=== PATIENT | female | born 1955 | race Caucasian/White ===

== ENCOUNTER 2018-05-03 11:55 | Outpatient (CLI) | payer OTHER | END 2018-05-03 12:03 | disposition home or self-care (01) | LOC: LAB 11:55 | DX: R10.9 Unspecified abdominal pain (principal); D64.0 Hereditary sideroblastic anemia ==

== ENCOUNTER 2018-05-05 07:08 | Outpatient (CLI) | payer OTHER | END 2018-05-05 07:12 | disposition home or self-care (01) | LOC: TOM 07:08 | DX: R10.9 Unspecified abdominal pain (principal) ==

== ENCOUNTER 2018-09-27 12:55 | Emergency (ER) | payer OTHER ==
[~2018-09-27] VITALS: Ht 160 cm; Wt 139.7 kg
[2018-09-27] MEDS ORDERED: DIOVAN HCT 1601 EACH (13:07)
[2018-09-27] MEDS ORDERED: SYNTHROID50 MCG (13:07)
== END 2018-09-27 17:53 | disposition home or self-care (01) ==
LOC: ER 12:55
DX: I10 Essential (primary) hypertension (principal); R00.2 Palpitations

== ENCOUNTER 2018-10-10 07:27 | Outpatient (CLI) | payer OTHER ==
[~2018-10-10 07:27] MED LIST: DIOVAN HCT 1601 EACH; SYNTHROID50 MCG
== END 2018-10-10 07:43 | disposition home or self-care (01) ==
LOC: TOM 07:27
DX: G45.8 Other transient cerebral ischemic attacks and related syndromes (principal)

== ENCOUNTER 2020-03-25 07:45 | Day surgery (SDC) | payer OTHER ==
[~2020-03-25 07:45] MED LIST changes: +ALBUTERO IH; +ARNUITY ELLIP100 MCG IH; +LEVOTHYROXINE25 MCG PO; +LEXAPR PO; +OMEPRAZO PO; +PROSOM PO; +ROSUVASTATIN CA10 MG PO
[2020-03-25] MEDS ORDERED: MACROBID 100 M100 MG PO (14:19)
[2020-03-25] MEDS ORDERED: ULTRACET PO (14:19)
== END 2020-03-25 19:10 | disposition home or self-care (01) ==
LOC: CIR.AMB 07:45
PROVIDERS: ATTEND Obstetrics & Gynecology Gynecology
DX: N81.11 Cystocele, midline (principal); Z20.828 Contact with and (suspected) exposure to other viral communicable diseases